=== PATIENT | male | born 1965 | race Asian ===

== ENCOUNTER 2017-12-03 20:57 | Emergency (ER) | payer MEDICAID ==
[~2017-12-03] VITALS: Ht 160 cm; Wt 76.5 kg
[~2017-12-03 20:57] MED LIST: ASPI-496 PO; ATOR-2 PO; CHOL20002 PO; METO50TA82 PO; OXYC-302 PO; TAMS-11 PO; VIT D3 PO; [UNRECOGNIZED DRUG - REMARK] PO
[2017-12-03 22:04] LABS: BASOPHILS # (AUTO) 0.06 x10^3/uL (0-0.1); BASOPHILS % (AUTO) 1 % (0-1); EOSINOPHILS # (AUTO) 0.08 x10^3/uL (0-0.4); EOSINOPHILS % (AUTO) 2 % (1-7); LYMPHOCYTES # (AUTO) 2.57 x10^3/uL (1-3.4); LYMPHOCYTES % (AUTO) 48 % (22-44); MD NO; MEAN CORPUSCULAR HEMOGLOBIN 24.9 pg (27.5-34.5); MEAN CORPUSCULAR VOLUME 75.5 fL (81-97); MEAN PLATELET VOLUME 8.5 fL (7.4-10.4); MONOCYTES # (AUTO) 0.48 x10^3/uL (0.2-0.8); MONOCYTES % (AUTO) 9 % (2-9); NEUTROPHILS % (AUTO) 41 % (42-75); PLATELET COUNT 209 x10^3/uL (130-400); RED BLOOD COUNT 5.95 x10^6/uL (4.38-5.82); RED CELL DISTRIBUTION WIDTH 14.2 % (9.4-14.8)
[2017-12-03 22:12] LABS: INTERNATIONAL NORMALIZED RATIO 0.95 (0.93-1.1); PROTHROMBIN TIME 9.8 Seconds (9.6-11.5)
[2017-12-03 22:15] LABS: ALBUMIN 3.8 g/dL (3.4-5.0); ANION GAP 7 mmol/L (5-15); CALCIUM 7.9 mg/dL (8.5-10.1); CHLORIDE 109 mmol/L (98-107); CREATININE 0.82 mg/dL (0.7-1.3)
[2017-12-03 22:17] LABS: ALKALINE PHOSPHATASE 93 U/L (45-117); BILIRUBIN,TOTAL 0.4 mg/dL (0.2-1.0)
[2017-12-03 22:30] LABS: ALANINE AMINOTRANSFERASE 76 U/L (12-78); TOTAL PROTEIN 7.1 g/dL (6.4-8.2)
[2017-12-03] MEDS ORDERED: CALCIUM CARBONATE 500 MG TAB.CHEW ONE (23:18)
[2017-12-03 23:21] VITALS: BP 139/80
[2017-12-03] MEDS ORDERED: CALCIUM CARBONATE 500 MG TAB.CHEW PO ONE (23:30)
== END 2017-12-03 23:24 | disposition home or self-care (01) ==
LOC: ED 22:47
DX: E83.51 Hypocalcemia (principal); I10 Essential (primary) hypertension; I25.2 Old myocardial infarction; E78.5 Hyperlipidemia, unspecified; E11.9 Type 2 diabetes mellitus without complications
CPT/HCPCS: 36415; 80053; 85025; 85610; 85730; 93005; 99285

== ENCOUNTER → 2018-10-20 | Outpatient (CLI) | payer MEDICAID ==
[~2018-10-20] MED LIST changes: -CHOL20002 PO; +CHOL200052 PO
== END | disposition home or self-care (01) ==
LOC: CVU 09:22
PROVIDERS: ATTEND Internal Medicine Cardiovascular Disease
DX: I08.8 Other rheumatic multiple valve diseases (principal); I10 Essential (primary) hypertension; E78.5 Hyperlipidemia, unspecified; Z87.891 Personal history of nicotine dependence
CPT/HCPCS: 93306

== ENCOUNTER 2019-08-12 08:53 | Emergency (ER) | payer MEDICAID ==
[~2019-08-12] VITALS: Ht 160 cm; Wt 80.5 kg
[2019-08-12] MEDS ORDERED: OXYcodone/APAP 5/325MG TABLET ONE (09:23)
--- NOTE | 2019-08-12 09:26 | NUR ---
PT WITH C/O R FLANK PAIN AND BLOOD IN URINE BEGINNING LATE LAST NIGHT. PT STATES "I HAVE A KIDNEY STONE" PT WITH HX OF KIDNEY STONES X5
[2019-08-12] MEDS ORDERED: OXYcodone/APAP 5/325MG TABLET PO ONE (09:30)
[2019-08-12 09:35] LABS: MICROSCOPIC AUTO
[2019-08-12 09:43] LABS: CULTURE INDICATED? NO
[2019-08-12 09:46] LABS: BASOPHILS # (AUTO) 0.02 x10^3/uL (0-0.1); BASOPHILS % (AUTO) 0 % (0-1); EOSINOPHILS # (AUTO) 0.04 x10^3/uL (0-0.4); EOSINOPHILS % (AUTO) 1 % (1-7); LYMPHOCYTES # (AUTO) 1.98 x10^3/uL (1-3.4); LYMPHOCYTES % (AUTO) 30 % (22-44); MD NO; MEAN CORPUSCULAR HEMOGLOBIN 24.3 pg (27.5-34.5); MEAN CORPUSCULAR VOLUME 75.9 fL (81-97); MEAN PLATELET VOLUME 8.5 fL (7.4-10.4); MONOCYTES # (AUTO) 0.42 x10^3/uL (0.2-0.8); MONOCYTES % (AUTO) 7 % (2-9); NEUTROPHILS # (AUTO) 4.05 x10^3/uL (1.8-6.8); NEUTROPHILS % (AUTO) 62 % (42-75); PLATELET COUNT 190 x10^3/uL (130-400); RED BLOOD COUNT 6.05 x10^6/uL (4.38-5.82); RED CELL DISTRIBUTION WIDTH 14.6 % (9.4-14.8)
[2019-08-12 09:54] LABS: ALANINE AMINOTRANSFERASE 152 U/L (12-78); ALBUMIN 4.2 g/dL (3.4-5.0); ANION GAP 5 mmol/L (5-15); CALCIUM 8.7 mg/dL (8.5-10.1); CHLORIDE 106 mmol/L (98-107); CREATININE 1.17 mg/dL (0.7-1.3)
[2019-08-12 09:56] LABS: ALKALINE PHOSPHATASE 60 U/L (45-117); BILIRUBIN,TOTAL 0.4 mg/dL (0.2-1.0); TOTAL PROTEIN 7.7 g/dL (6.4-8.2)
[2019-08-12 11:11] VITALS: BP 133/69
--- NOTE | 2019-08-12 11:13 | NUR ---
PT PLACED FOR RECHECK, NO NEEDS AT THIS TIME
== END 2019-08-12 13:11 | disposition home or self-care (01) ==
LOC: ED 12:30
DX: R31.0 Gross hematuria (principal); R10.9 Unspecified abdominal pain; I25.2 Old myocardial infarction; I10 Essential (primary) hypertension; E11.9 Type 2 diabetes mellitus without complications
CPT/HCPCS: 36415; 74018; 76770; 80053; 81001; 83690; 85025; 99285

== ENCOUNTER 2020-01-13 08:32 | Outpatient (CLI) | payer MEDICAID | END 2020-01-13 23:59 | disposition home or self-care (01) | LOC: CARD 08:32 | PROVIDERS: ATTEND Nurse Practitioner | DX: G56.03 Carpal tunnel syndrome, bilateral upper limbs (principal); I10 Essential (primary) hypertension; E78.00 Pure hypercholesterolemia, unspecified | CPT/HCPCS: 95886; 95908 ==

== ENCOUNTER → 2020-04-24 | Outpatient (CLI) | payer MEDICAID | END | disposition home or self-care (01) | LOC: CFH 07:37 | PROVIDERS: ATTEND Internal Medicine Cardiovascular Disease | DX: I10 Essential (primary) hypertension (principal); I25.10 Atherosclerotic heart disease of native coronary artery without angina pectoris | CPT/HCPCS: 78452; 93017; 93306; A9502 ==

== ENCOUNTER 2020-05-24 10:42 | Emergency (ER) | payer MEDICAID ==
[~2020-05-24] VITALS: Ht 160 cm; Wt 81.4 kg
--- NOTE | 2020-05-24 11:45 | NUR ---
PATIENT CARE TECHNICIAN INSTRUCTOR: PT TO ROOM FROM LOBBY
[2020-05-24] MEDS ORDERED: HYDROcodone/APAP 5/325 TABLET PO ONE (12:00)
[2020-05-24] MEDS ORDERED: KETOROLAC 30 MG/1 ML IM ONE (12:00)
--- NOTE | 2020-05-24 12:04 | NUR ---
THIS IS A 54 YEAR OLD MALE WHO C/O OF LOWER BACK PAIN, PT HAS A HISTORY OF BACK PAIN, NO NEW INJURY
[2020-05-24] MEDS ORDERED: KETOROLAC 60 MG/2 ML ONE (12:07)
[2020-05-24] MEDS ORDERED: HYDROcodone/APAP 5/325 TABLET ONE (12:08)
--- NOTE | 2020-05-24 12:16 | NUR ---
TASK RN, COVERING MEAL BREAK. PT MEDICATED PER ERP ORDER. PT TO XRAY.
--- NOTE | 2020-05-24 12:41 | NUR ---
PT BACK FROM XRAY. PT STATES PAIN UNCHANGED, STILL RATED AT 10/10 WITH MOVEMENT. VSS/UPDATED IN COMPUTER. CALL LIGHT WITHIN REACH.
[2020-05-24] MEDS ORDERED: METHOCARBAMOL 750 MG TABLET ONE (13:11)
--- NOTE | 2020-05-24 13:16 | NUR ---
MEDICATED PER ORDERS, PT STATES, PAIN IS 7/10. REPOSITIONED. PT VERBALIZED NO OTHER NEEDS AT THIS TIME.
[2020-05-24] MEDS ORDERED: METHOCARBAMOL 750 MG TABLET PO ONE (13:30)
--- NOTE | 2020-05-24 14:08 | NUR ---
PT RESTING, RESP EVEN AND UNLABORED
--- NOTE | 2020-05-24 14:57 | NUR ---
Patient/Caregiver given discharge instructions and they have confirmed that they understand the instructions. Patient ambulatory with steady gait.
[2020-05-24 14:58] VITALS: BP 122/71
== END 2020-05-24 15:12 | disposition home or self-care (01) ==
LOC: ED 14:45
DX: S39.012A Strain of muscle, fascia and tendon of lower back, initial encounter (principal); I10 Essential (primary) hypertension; E11.9 Type 2 diabetes mellitus without complications; I25.2 Old myocardial infarction; Z90.49 Acquired absence of other specified parts of digestive tract; X58.XXXA Exposure to other specified factors, initial encounter; Y93.89 Activity, other specified; Y92.89 Other specified places as the place of occurrence of the external cause; Y99.8 Other external cause status
CPT/HCPCS: 72110; 72220; 96372; 99284; J1885

== ENCOUNTER 2020-10-25 13:07 | Emergency (ER) | payer MEDICAID ==
[~2020-10-25] VITALS: Ht 160 cm; Wt 79.0 kg
[~2020-10-25 13:07] MED LIST changes: -OXYC-302 PO; +OXYC1TAB14 PO
--- NOTE | 2020-10-25 13:48 | NUR ---
MONEY EXAMINER: PT TO ROOM FROM [facility]
[2020-10-25] MEDS ORDERED: ONDANSETRON ODT 4 MG PO ONE (14:00)
--- NOTE | 2020-10-25 14:00 | NUR ---
LABS DRAWN IN LOBBY. PT AMBULATORY TO ROOM AND THEN TO BR TO PROVIDE URINE AND STOOL SPECIMEN. PT STATES DIARRHEA "LIKE WATER", OCCURRENCES EVERY 30 MINUTES. ALSO VOMITING.
[2020-10-25 14:08] LABS: BASOPHILS % (AUTO) 0 % (0-1); EOSINOPHILS % (AUTO) 0 % (1-7); LYMPHOCYTES % (AUTO) 10 % (22-44); MEAN CORPUSCULAR HEMOGLOBIN 24.8 pg (27.5-34.5); MEAN CORPUSCULAR HGB CONC 31.5 g/dL (33.2-36.2); MEAN PLATELET VOLUME 8.1 fL (7.4-10.4); MONOCYTES % (AUTO) 7 % (2-9); NEUTROPHILS % (AUTO) 83 % (42-75); PLATELET COUNT 203 x10^3/uL (130-400); RED BLOOD COUNT 6.25 x10^6/uL (4.38-5.82); RED CELL DISTRIBUTION WIDTH 15.1 % (9.4-14.8)
[2020-10-25 14:09] LABS: MD MORPH REVIEW ONLY
[2020-10-25 14:14] LABS: ALBUMIN 4.7 g/dL (3.4-5.0); ANION GAP 6 mmol/L (5-15); CALCIUM 8.6 mg/dL (8.5-10.1); CHLORIDE 111 mmol/L (98-107)
[2020-10-25 14:17] LABS: ALANINE AMINOTRANSFERASE 161 U/L (12-78); ALKALINE PHOSPHATASE 70 U/L (45-117); BILIRUBIN,TOTAL 0.6 mg/dL (0.2-1.0); CREATININE 1.19 mg/dL (0.7-1.3); TOTAL PROTEIN 8.6 g/dL (6.4-8.2)
[2020-10-25] MEDS ORDERED: ONDANSETRON ODT 4 MG ONE (14:23)
[2020-10-25 14:28] LABS: <PLATELET ESTIMATE> ADEQUATE; <PLT MORPHOLOGY> NORMAL PLT MORPH; ANISOCYTOSIS 1+; HYPOCHROMIA 1+; MICROCYTOSIS 1+
--- NOTE | 2020-10-25 14:30 | NUR ---
URINE, STOOL, AND COVID SWAB SPECIMENS WALKED TO LAB. ZOFRAN GIVEN ODT, PO CHALLENGE STARTED.
[2020-10-25 14:36] LABS: MICROSCOPIC NOT IND
[2020-10-25 15:12] LABS: CLOSTRIDIUM DIFFICILE ANTIGEN NEGATIVE; CLOSTRIDIUM DIFFICILE TOXIN NEGATIVE (Negative)
--- NOTE | 2020-10-25 15:37 | NUR ---
NO N/V SINCE ZOFRAN GIVEN AND PT ABLE TO KEEP WATER DOWN. RESULTS BACK, PT FOR RECHECK.
[2020-10-25 16:33] VITALS: BP 125/72
== END 2020-10-25 17:31 | disposition home or self-care (01) ==
LOC: ED 14:34
DX: K52.9 Noninfective gastroenteritis and colitis, unspecified (principal); Z20.822 Contact with and (suspected) exposure to COVID-19; B34.9 Viral infection, unspecified; I10 Essential (primary) hypertension; E11.9 Type 2 diabetes mellitus without complications; E78.5 Hyperlipidemia, unspecified; I25.2 Old myocardial infarction; Z90.49 Acquired absence of other specified parts of digestive tract; Z98.61 Coronary angioplasty status
CPT/HCPCS: 36415; 74022; 80053; 81003; 85025; 87324; 89055; 99284; Q0162; U0003; U0005

== ENCOUNTER → 2020-12-17 | Outpatient (CLI) | payer MEDICAID | END | disposition home or self-care (01) | LOC: CFH 07:15 | PROVIDERS: ATTEND Registered Nurse | DX: I25.10 Atherosclerotic heart disease of native coronary artery without angina pectoris (principal) | CPT/HCPCS: 78452; 93017; A9502 ==